=== PATIENT | female | born 1975 | race Caucasian/White ===

== ENCOUNTER 2016-11-23 00:59 | Emergency (ER) | payer OTHER ==
[~2016-11-23] VITALS: Ht 149.9 cm; Wt 58.5 kg
[2016-11-23 01:00] VITALS: BP_SYST 128
[2016-11-23 02:06] LABS: BASOPHILS % (AUTO) 0.3 % (0.0-2.0); EOSINOPHILS # (AUTO) 0.1 K/uL (0.0-0.4); EOSINOPHILS % (AUTO) 0.9 % (0.0-4.0); HEMATOCRIT 43.2 % (36-48); HEMOGLOBIN 14.4 g/dL (12.0-16.0); LYMPHOCYTES # (AUTO) 4.1 K/uL (1.0-5.5); LYMPHOCYTES % (AUTO) 31.7 % (20.5-51.5); MEAN CORPUSCULAR HEMOGLOBIN 30 pg (27-31); MEAN CORPUSCULAR HGB CONC 33 % (32-36); MEAN CORPUSCULAR VOLUME 91 fL (79.0-98.0); MONOCYTES # (AUTO) 0.7 K/uL (0.0-1.0); MONOCYTES % (AUTO) 5.1 % (1.7-9.3); NEUTROPHILS # (AUTO) 8.1 K/uL (1.8-7.7); PLATELET COUNT (AUTO) 395 K/uL (130-430); RED BLOOD CELL COUNT(AUTO) 4.76 MIL/uL (4.2-6.2); RED CELL DISTRIBUTION WIDTH 12.3 % (9.0-15.0)
[2016-11-23 02:11] LABS: CREATININE 0.55 mg/dL (0.55-1.30)
[2016-11-23 02:15] LABS: ALBUMIN 3.6 g/dL (3.4-4.8); PROTHROMBIN TIME 11.1 SECS (9.5-12.5); TOTAL BILIRUBIN 0.4 mg/dL (0.0-1.0); TOTAL PROTEIN, SERUM 8.1 g/dL (6.4-8.3)
[2016-11-23] MEDS ORDERED: ONDANSETRON HCL 4 MG/2 ML VIAL IVP ONE (02:30)
[2016-11-23] MEDS ORDERED: MORPHINE 2 MG/ML INJ. SYRINGE IVP ONE (02:30)
[2016-11-23 02:43] VITALS: BP_SYST 106
== END 2016-11-23 02:43 | disposition short-term general hospital (02) ==
LOC: SED 00:59
DX: T81.89XA Other complications of procedures, not elsewhere classified, initial encounter (principal); K14.6 Glossodynia; Z88.0 Allergy status to penicillin; Z91.040 Latex allergy status; Z88.1 Allergy status to other antibiotic agents
CPT/HCPCS: 36415; 80053; 85025; 85610; 85730; 96374; 96375; 99285; J2270; J2405